=== PATIENT | male | born 1945 | race Caucasian/White ===

== ENCOUNTER 2019-06-15 06:16 | Day surgery (SDC) | payer OTHER ==
[2019-06-14 10:08] VITALS: BMI 28.5
[2019-06-15] MEDS ORDERED: LIDOCAINE HCL 1%, 10 MG/ML (20ML VIAL) ONE (07:08)
[2019-06-15] MEDS ORDERED: BUPIVACAINE HCL/PF 0.25% (2.5MG/ML) 10 ML VIAL ONE (07:08)
[2019-06-15] MEDS ORDERED: DEXAMETHASONE SOD PHOSPHATE 4 MG/1 ML VIAL ONE (07:32)
[2019-06-15] MEDS ORDERED: BUPIVACAINE HCL/PF 0.75% 10 ML VIAL ONE (07:33)
[2019-06-15] MEDS ORDERED: SODIUM CHLORIDE 0.9% P/F 10 ML VIAL IJ ONE (07:37)
[2019-06-15] MEDS ORDERED: LIDOCAINE HCL 1%, 10 MG/ML (20ML VIAL) INF ONE ×3 (08:44→08:59)
[2019-06-15] MEDS ORDERED: BUPIVACAINE HCL/PF 0.5% (5 MG/ML) 30 ML VIAL IJ ONE (08:45)
[2019-06-15] MEDS ORDERED: BUPIVACAINE HCL/PF 2.5 MG/ML - 30 ML VIAL IJ ONE (08:45)
[2019-06-15] MEDS ORDERED: IOHEXOL 180 MG/1 ML ML IJ ONE ×3 (08:46→08:59)
[2019-06-15] MEDS ORDERED: BUPIVACAINE HCL/PF 0.75% 10 ML VIAL NR ONE ×3 (08:46→08:59)
[2019-06-15] MEDS ORDERED: TRIAMCINOLONE ACETONIDE 40 MG/ML 10 ML VIAL IJ ONE (08:46)
[2019-06-15 09:20] VITALS: BP 135/77; PULSE 57; TEMP 97.9
== END 2019-06-15 09:40 | disposition home or self-care (01) ==
LOC: JASU-SURG 06:16
PROVIDERS: ATTEND Pain Medicine Pain Medicine
PROC: BR16YZZ Fluoroscopy of Lumbar Facet Joint(s) using Other Contrast (ICD-10-PCS; 2019-06-15)
PROC: 3E0T3BZ Introduction of Anesthetic Agent into Peripheral Nerves and Plexi, Percutaneous Approach (ICD-10-PCS; principal; 2019-06-15 08:00)
DX: M12.88 Other specific arthropathies, not elsewhere classified, other specified site (principal); M54.5 Low back pain
CPT/HCPCS: 76000-TC-FY

== ENCOUNTER 2019-12-07 04:32 | Day surgery (SDC) | payer OTHER ==
[2019-12-06 11:28] VITALS: BMI 28.5
[2019-12-07] MEDS ORDERED: LIDOCAINE HCL/PF 1% SDV 5ML VIAL ONE (07:33)
[2019-12-07] MEDS ORDERED: DEXAMETHASONE SOD PHOSPHATE/PF 10 MG/ML SDV ONE (07:33)
--- NOTE | 2019-12-07 08:01 | HP ---
Admitting History and Physical - Admission Chief Complaint: Low back pain History Source: Patient - Smoking History Smoking history: Never smoked - Alcohol/Substance Use Hx Alcohol Use: Yes (OCCASIONAL) Home Medications - Allergies Allergies/Adverse Reactions: Allergies Allergy/AdvReac Type Severity Reaction Status Date / Time Penicillins Allergy Severe ANAPHYLACTI Verified 12/07/19 06:43 C - Home Medications Home Medications: Ambulatory Orders NK [No Known Home Medication] 06/14/19 Review of Systems - Review of Systems Constitutional: reports: No Symptoms Eyes: reports: No Symptoms HENT: reports: No Symptoms Neck: reports: No Symptoms Cardiovascular: reports: No Symptoms Respiratory: reports: No Symptoms Gastrointestinal: reports: No Symptoms Genitourinary: reports: No Symptoms Musculoskeletal: reports: No Symptoms Neurological: reports: No Symptoms Endocrine: reports: No Symptoms Hematology/Lymphatic: reports: No Symptoms Physical Examination Vital Signs: Vital Signs Temperature 98.0 F 12/07/19 06:41 Pulse Rate 59 L 12/07/19 06:41 Respiratory Rate 20 12/07/19 06:41 Blood Pressure 146/78 12/07/19 06:41 O2 Sat by Pulse Oximetry (%) 97 12/07/19 06:41 Constitutional: Yes: Well Nourished, No Distress, Calm Eyes: Yes: WNL, Conjunctiva Clear, EOM Intact HENT: Yes: WNL, Atraumatic, Normocephalic Neck: Yes: WNL, Trachea Midline Cardiovascular: Yes: Regular Rate and Rhythm Respiratory: Yes: WNL Musculoskeletal: Yes: Back Pain Imaging - Results MRI: Image Reviewed Assessment/Plan The patients michael is secodnary to lumbar spondylosis. I will perform Left L3 L4 L5 RFA
[2019-12-07] MEDS ORDERED: LIDOCAINE HCL 1% PRESERVATIVE FREE - 30ML VIAL IJ ONE ×2 (08:07)
[2019-12-07] MEDS ORDERED: BUPIVACAINE HCL/PF 0.75% 10 ML VIAL NR ONE ×2 (08:08)
[2019-12-07 09:07] VITALS: TEMP 97.8
[2019-12-07 09:26] VITALS: BP 150/78; PULSE 55
--- NOTE | 2019-12-13 09:27 | PROC ---
Procedure Note Procedure: Preprocedure Diagnosis: Lumbar spondylosis/Low back pain Post Procedure Diagnosis: same Anesthesia: Local Procedure Performed: Left L3 L4 L5 medial branch radiofrequency ablation under fluoroscopic guidance The patient was sterilely prepped and draped in the usual fashion while in the prone position. 1% Lidocaine was used to provide soft tissue anesthesia. Time out was performed. Under fluoroscopic guidance, 10mm active tip radiofrequency probes were successfully directed over the Left L3, L4 and L5 dorsal rami at the intersection of the transverse processes and superior articular processes. Needle tip positions were confirmed with both sensory and motor stimulation, both of which resulted in appropriate responses in the lumbar region, and no response in the lower extremities. Lesions were performed at each site at a temperature of 90 degrees Celsius for duration of 90 seconds. Prior to each lesion, 1mL of a cocktail of 4mL of 2% lidocaine and 1mL Omnipaque 180 was injected at each site. Following each lesion, 0.5mL of solution containing 1mL dexamethasone and 2mL of .75% bupiva allan, was injected at each site. The patient tolerated the procedure well and there were no complications. The patient was taken to the post procedure recovery area in good condition. Vital signs remained stable before, during, and after the procedure. The patient was given oral and written follow-up instructions. The patient was given a follow up appointment with me in the near future. Ras PAL
== END 2019-12-07 09:33 | disposition home or self-care (01) ==
LOC: JASU-SURG 04:32
PROVIDERS: ATTEND Pain Medicine Pain Medicine
PROC: BR16YZZ Fluoroscopy of Lumbar Facet Joint(s) using Other Contrast (ICD-10-PCS; 2019-12-07)
PROC: 3E0T3TZ Introduction of Destructive Agent into Peripheral Nerves and Plexi, Percutaneous Approach (ICD-10-PCS; principal; 2019-12-07 08:00)
DX: M47.896 Other spondylosis, lumbar region (principal); M54.5 Low back pain
CPT/HCPCS: 76000-TC-FY

== ENCOUNTER 2019-12-28 04:14 | Day surgery (SDC) | payer OTHER ==
[2019-12-26 09:48] VITALS: BMI 28.5
[2019-12-28] MEDS ORDERED: methylPREDNISolone ACET (DEPO) 40 MG/1 ML VIAL ONE (07:16)
[2019-12-28] MEDS ORDERED: BETAMET ACET/BETAMET NA PH 30 MG/5 ML VIAL ONE (07:16)
[2019-12-28] MEDS ORDERED: LIDOCAINE HCL 1%, 10 MG/ML (20ML VIAL) ONE (07:16)
[2019-12-28] MEDS ORDERED: BUPIVACAINE HCL/PF 0.25% (2.5MG/ML) 10 ML VIAL ONE (07:16)
[2019-12-28] MEDS ORDERED: DEXAMETHASONE SOD PHOSPHATE 4 MG/1 ML VIAL ONE (07:16)
[2019-12-28] MEDS ORDERED: BUPIVACAINE HCL/PF 0.75% 10 ML VIAL ONE (08:58)
[2019-12-28] MEDS ORDERED: LIDOCAINE HCL 2% (20ML MULTI-DOSE VIAL) ONE (08:58)
--- NOTE | 2019-12-28 09:04 | PROC ---
Procedure Note Procedure: Pre procedure Diagnosis: Lumbar Spondylosis Post Procedure Diagnosis: same Anesthesia: local Procedure Performed: RightL3 L4 L5 medial branch radiofrequency ablation The patient was sterilely prepped and draped in the usual fashion while in the prone position. 1% Lidocaine was used to provide soft tissue anesthesia. Time out was performed. Under fluoroscopic guidance, 10mm active tip radiofrequency probes were successfully directed over the RIGHT L3, L4 and L5 dorsal rami at the intersection of the transverse processes and superior articular processes. Needle tip positions were confirmed with both sensory and motor stimulation, both of which resulted in appropriate responses in the lumbar region, and no reponse in the lower extremities. Lesions were performed at each site at a temperature of 90 degrees Celsius for duration of 90 seconds. Prior to each lesion, 1mL of a cocktail of 4mL of 2% lidocaine and 1mL Omnipaque 180 was injected at each site. Following each lesion, 0.5mL of solution containing 1mL dexamethasone and 2mL of .75% bupivacaine, was injected at each site. The patient tolerated the procedure well and there were no complications. The patient was taken to the post procedure recovery area in good condition. Vital signs remained stable before, during, and after the procedure. The patient was given oral and written follow-up instructions. The patient was given a follow up appointment with me in the near future. Ras PAL
[2019-12-28] MEDS ORDERED: LIDOCAINE HCL 1%, 10 MG/ML (20ML VIAL) ID ONE (09:19)
[2019-12-28] MEDS ORDERED: LIDOCAINE HCL 2% (50ML VIAL) INF ONE (09:20)
[2019-12-28] MEDS ORDERED: DEXAMETHASONE SOD PHOSPHATE 10 MG/1 ML VIAL IVPUSH ONE (09:21)
[2019-12-28] MEDS ORDERED: BUPIVACAINE HCL/PF 0.75% 10 ML VIAL NR ONE (09:22)
[2019-12-28] MEDS ORDERED: IOHEXOL 180 MG/1 ML ML IJ ONE (09:25)
[2019-12-28 10:10] VITALS: TEMP 98.2
[2019-12-28 10:19] VITALS: BP 134/69; PULSE 60
== END 2019-12-28 10:25 | disposition home or self-care (01) ==
LOC: JASU-SURG 04:14
PROVIDERS: ATTEND Pain Medicine Pain Medicine
PROC: 3E0T3TZ Introduction of Destructive Agent into Peripheral Nerves and Plexi, Percutaneous Approach (ICD-10-PCS; principal; 2019-12-28 09:00)
DX: M47.817 Spondylosis without myelopathy or radiculopathy, lumbosacral region (principal); M54.5 Low back pain
CPT/HCPCS: J1100

== ENCOUNTER 2020-04-18 05:54 | Day surgery (SDC) | payer OTHER ==
[2020-04-18] MEDS ORDERED: LIDOCAINE HCL 1% PRESERVATIVE FREE - 30ML VIAL IJ ONE (11:48)
[2020-04-18 13:20] VITALS: TEMP 97.9
[2020-04-18 13:30] VITALS: BP 140/74; PULSE 60
== END 2020-04-18 12:50 | disposition home or self-care (01) ==
LOC: JASU-SURG 05:54
PROVIDERS: ATTEND Pain Medicine Pain Medicine
PROC: 01HY3MZ Insertion of Neurostimulator Lead into Peripheral Nerve, Percutaneous Approach (ICD-10-PCS; principal; 2020-04-18 10:30)
DX: G89.4 Chronic pain syndrome (principal)
CPT/HCPCS: 64555; C1778; 76000-TC-FY

== ENCOUNTER 2020-06-16 10:37 | Emergency (ER) | payer OTHER | END 2020-06-16 11:42 | disposition home or self-care (01) | LOC: JVIRT 10:37 | DX: U07.1 COVID-19 (principal) | CPT/HCPCS: C9803; G2012-GT; U0003 ==

== ENCOUNTER 2021-02-06 04:31 | Day surgery (SDC) | payer OTHER ==
[2021-02-05 10:35] VITALS: BMI 27.8
[2021-02-06] MEDS ORDERED: LIDOCAINE HCL 1% PRESERVATIVE FREE - 30ML VIAL IJ ONE (10:24)
[2021-02-06 11:40] VITALS: BP 160/76; PULSE 64; TEMP 98.6
== END 2021-02-06 11:45 | disposition home or self-care (01) ==
LOC: JASU-SURG 04:31
PROVIDERS: ATTEND Pain Medicine Pain Medicine
PROC: 4B01XVZ Measurement of Peripheral Nervous Stimulator, External Approach (ICD-10-PCS; 2021-02-06)
PROC: 01HY3MZ Insertion of Neurostimulator Lead into Peripheral Nerve, Percutaneous Approach (ICD-10-PCS; principal; 2021-02-06 09:15)
DX: G89.4 Chronic pain syndrome (principal); M25.561 Pain in right knee
CPT/HCPCS: 64555; C1897

== ENCOUNTER 2021-07-31 05:31 | Day surgery (SDC) | payer OTHER ==
[2021-07-27 12:11] VITALS: BMI 27.2
[2021-07-31] MEDS ORDERED: LIDOCAINE HCL/PF 1% SDV 5ML VIAL ONE (07:08)
[2021-07-31] MEDS ORDERED: LIDOCAINE HCL/PF 2% SDV 5ML VIAL ONE (07:11)
[2021-07-31] MEDS ORDERED: LIDOCAINE HCL 1% PRESERVATIVE FREE - 30ML VIAL IJ ONE (09:24)
[2021-07-31] MEDS ORDERED: ACETAMINOPHEN 650 MG/20.3 ML ORAL SOLUTION (CUPS) ONE (10:48)
[2021-07-31] MEDS ORDERED: ACETAMINOPHEN 325 MG TABLET (FP) PO ONE (10:50)
[2021-07-31 12:16] VITALS: BP 156/79; PULSE 60; TEMP 98
== END 2021-07-31 11:05 | disposition home or self-care (01) ==
LOC: JASU-SURG 05:31
PROVIDERS: ATTEND Pain Medicine Pain Medicine
PROC: 01HY3MZ Insertion of Neurostimulator Lead into Peripheral Nerve, Percutaneous Approach (ICD-10-PCS; principal; 2021-07-31 09:00)
DX: G89.4 Chronic pain syndrome (principal); M25.561 Pain in right knee; E11.9 Type 2 diabetes mellitus without complications
CPT/HCPCS: 64555; C1897

== ENCOUNTER 2021-11-05 08:00 | Inpatient (IN) | payer OTHER ==
[2021-10-27 13:21] VITALS: BMI 27.8
[2021-11-05] MEDS ORDERED: BUPIVACAINE HCL 50 ML ONE ×3 (12:35→13:52)
[2021-11-05] MEDS ORDERED: PROPOFOL 20 ML ONE ×2 (13:06)
[2021-11-05] MEDS ORDERED: SUCCINYLCHOLINE CHLORIDE 200 MG/10 ML SYRINGE ONE (13:06)
[2021-11-05] MEDS ORDERED: LIDOCAINE HCL 2% JELLY (5 ML/TUBE) ONE (13:06)
[2021-11-05] MEDS ORDERED: MIDAZOLAM HCL 2 MG/2 ML SINGLE DOSE VIAL ONE (13:06)
[2021-11-05] MEDS ORDERED: LIDOCAINE HCL/PF 2% SDV 5ML VIAL ONE (13:06)
[2021-11-05] MEDS ORDERED: ceFAZolin SODIUM 1 GM VIAL ONE (13:19)
[2021-11-05] MEDS ORDERED: ONDANSETRON 4 MG/2 ML VIAL ONE (13:19)
[2021-11-05] MEDS ORDERED: DEXAMETHASONE SOD PHOSPHATE 4 MG/1 ML VIAL ONE (13:19)
[2021-11-05] MEDS ORDERED: KETOROLAC TROMETHAMINE 30 MG/1 ML VIAL ONE (13:19)
[2021-11-05] MEDS ORDERED: ePHEDrine SULFATE 50 MG/1 ML AMPULE ONE (13:57)
[2021-11-05] MEDS ORDERED: oxyCODONE HCL 5 MG TABLET PO ONE (14:16)
[2021-11-05] MEDS ORDERED: ONDANSETRON 4 MG/2 ML VIAL IVPUSH PRN (14:16)
[2021-11-05] MEDS ORDERED: FENTANYL CITRATE/PF 50 MCG/ML VIAL ONE (14:35)
[2021-11-05 16:10] VITALS: TEMP 97.9
[2021-11-05 16:46] VITALS: BP 128/72; PULSE 80
== END 2021-11-05 16:40 | disposition home or self-care (01) | DRG 489 ==
LOC: EDSTATUS 08:00 → FM/S 10:30
PROVIDERS: ADMIT Orthopaedic Surgery; ATTEND Orthopaedic Surgery
PROC: 0SQD0ZZ Repair Left Knee Joint, Open Approach (ICD-10-PCS; 2021-11-05)
PROC: 0SBD0ZZ Excision of Left Knee Joint, Open Approach (ICD-10-PCS; principal; 2021-11-05 12:00)
DX: S83.232A Complex tear of medial meniscus, current injury, left knee, initial encounter (principal); M17.12 Unilateral primary osteoarthritis, left knee; Y93.9 Activity, unspecified; M65.862 Other synovitis and tenosynovitis, left lower leg; X58.XXXA Exposure to other specified factors, initial encounter
CPT/HCPCS: 94760; C9803-CS; U0003; U0005

== ENCOUNTER 2022-01-19 16:29 | Inpatient (IN) | payer OTHER ==
[2022-01-19] MEDS ORDERED: ASPIRIN 81 MG CHEWABLE TABLETS PO ONE (16:59)
[2022-01-19] MEDS ORDERED: ASPIRIN 81 MG CHEWABLE TABLETS ONE (17:25)
[2022-01-19 17:55] LABS: BASO % 0.2 % (0-2.0); EOS % 0.2 % (0-4.5); HEMATOCRIT 41.8 % (35.4-49); HEMOGLOBIN 14.1 GM/dL (11.7-16.9); LYMPH % 10.6 % (8-40); MCH 31.1 pg (25.7-33.7); MCHC 33.6 g/dl (32.0-35.9); MEAN CELL VOLUME 92.5 fl (80-96); MEAN PLT VOLUME 8.6 fl (7.5-11.1); MONO % 13.7 % (3.8-10.2); NEUT % 75.3 % (42.8-82.8); PLATELET COUNT 157 10^3/uL (134-434); RBC 4.52 M/mm3 (4.00-5.60); WHITE BLOOD COUNT 6.5 K/mm3 (4.0-10.0)
[2022-01-19 18:02] LABS: INR 1.26 (0.83-1.09); PROTHROMBIN TIME (PATIENT) 14.5 SEC (9.7-13.0)
[2022-01-19 18:05] LABS: ACTIVATED PTT 27.1 SECONDS (25.2-36.5)
[2022-01-19 18:25] LABS: CALCIUM 9.1 mg/dL (8.5-10.1)
[2022-01-19 18:26] LABS: ALBUMIN 3.4 g/dl (3.4-5.0); BLOOD UREA NITROGEN 18.8 mg/dL (7-18)
[2022-01-19 18:29] LABS: CREATININE 1.1 mg/dL (0.55-1.3)
[2022-01-19 18:30] LABS: BILIRUBIN,TOTAL 1.1 mg/dL (0.2-1); TOT PROT 6.9 g/dl (6.4-8.2)
[2022-01-20 08:45] LABS: BLOOD UREA NITROGEN 25.4 mg/dL (7-18); CALCIUM 8.7 mg/dL (8.5-10.1); MAGNESIUM 2.1 mg/dL (1.8-2.4)
[2022-01-20 08:47] LABS: CREATININE 1.4 mg/dL (0.55-1.3)
[2022-01-20 08:48] LABS: PHOSPHOROUS 1.8 mg/dL (2.5-4.9)
[2022-01-20 08:49] LABS: BILIRUBIN,TOTAL 0.7 mg/dL (0.2-1); TOT PROT 6.3 g/dl (6.4-8.2)
[2022-01-20] MEDS: ASPIRIN COATED 81 MG TABLET.EC PO SCH (14:06)
[2022-01-20] MEDS: CLOPIDOGREL BISULFATE 75 MG TABLET (FP) PO SCH (14:06)
[2022-01-20] MEDS: ENOXAPARIN NA (PORCINE) 40 MG/0.4 ML DISP.SYRIN SQ SCH (14:06)
[2022-01-20] MEDS ORDERED: CLOPIDOGREL BISULFATE 75 MG TABLET (FP) ONE (14:08)
[2022-01-20] MEDS ORDERED: ASPIRIN 81 MG CHEWABLE TABLETS ONE (14:08)
[2022-01-20 16:04] VITALS: BMI 27.7
[2022-01-20] MEDS: ATORVASTATIN CA 80 MG TABLET (FP) PO SCH (22:05)
[2022-01-20 22:08] LABS: PH,URINE 5.5 (5.0-8.0); URINE APPEARANCE CLEAR; URINE BILIRUBIN NEGATIVE (NEGATIVE); URINE COLOR YELLOW; URINE GLUCOSE (UA) NEGATIVE (NEGATIVE); URINE KETONE NEGATIVE (NEGATIVE); URINE LEUK ESTERASE NEGATIVE (NEGATIVE); URINE NITRITE NEGATIVE (NEGATIVE); URINE PROTEIN NEGATIVE (NEGATIVE)
[2022-01-21] MEDS ORDERED: REGADENOSON 0.4 MG/5 ML PRE-FILLED SYRINGE IVPUSH ONE (10:45)
[2022-01-21] MEDS: ENOXAPARIN NA (PORCINE) 40 MG/0.4 ML DISP.SYRIN SQ SCH (15:10)
[2022-01-21] MEDS: ASPIRIN COATED 81 MG TABLET.EC PO SCH (15:10)
[2022-01-21] MEDS: CLOPIDOGREL BISULFATE 75 MG TABLET (FP) PO SCH (15:10)
[2022-01-21 18:15] VITALS: RESP 18
[2022-01-21 19:28] LABS: BASO % 0.4 % (0-2.0); EOS % 2.1 % (0-4.5); HEMATOCRIT 45.5 % (35.4-49); HEMOGLOBIN 15.3 GM/dL (11.7-16.9); LYMPH % 14.7 % (8-40); MCH 31.1 pg (25.7-33.7); MCHC 33.7 g/dl (32.0-35.9); MEAN CELL VOLUME 92.4 fl (80-96); MEAN PLT VOLUME 8.7 fl (7.5-11.1); MONO % 12.3 % (3.8-10.2); NEUT % 70.5 % (42.8-82.8); PLATELET COUNT 194 10^3/uL (134-434); RBC 4.92 M/mm3 (4.00-5.60); RDW 14.4 % (11.9-15.9); WHITE BLOOD COUNT 5.8 K/mm3 (4.0-10.0)
[2022-01-21 19:55] LABS: BLOOD UREA NITROGEN 30.1 mg/dL (7-18)
[2022-01-21 19:57] LABS: ALBUMIN 3.4 g/dl (3.4-5.0); MAGNESIUM 2.2 mg/dL (1.8-2.4)
[2022-01-21 19:59] LABS: PHOSPHOROUS 3.3 mg/dL (2.5-4.9)
[2022-01-21 20:00] LABS: CREATININE 1.2 mg/dL (0.55-1.3)
[2022-01-21 20:01] LABS: BILIRUBIN,TOTAL 0.4 mg/dL (0.2-1)
[2022-01-21 20:23] LABS: ERYTHROCYTE SEDIMENTATION RATE 56 mm/hr (0-20)
[2022-01-21] MEDS: ATORVASTATIN CA 80 MG TABLET (FP) PO SCH (21:15)
[2022-01-22 08:11] LABS: BASO % 0.4 % (0-2.0); HEMATOCRIT 39.1 % (35.4-49); HEMOGLOBIN 13.3 GM/dL (11.7-16.9); LYMPH % 19.4 % (8-40); MCH 31.7 pg (25.7-33.7); MCHC 34.1 g/dl (32.0-35.9); MEAN PLT VOLUME 8.7 fl (7.5-11.1); MONO % 11.7 % (3.8-10.2); NEUT % 64.5 % (42.8-82.8); PLATELET COUNT 181 10^3/uL (134-434); RDW 13.9 % (11.9-15.9); WHITE BLOOD COUNT 4.2 K/mm3 (4.0-10.0)
[2022-01-22 08:39] LABS: ALBUMIN 2.8 g/dl (3.4-5.0); CALCIUM 8.3 mg/dL (8.5-10.1)
[2022-01-22 08:42] LABS: CREATININE 1.1 mg/dL (0.55-1.3); PHOSPHOROUS 3.2 mg/dL (2.5-4.9)
[2022-01-22 08:44] LABS: BILIRUBIN,TOTAL 0.5 mg/dL (0.2-1); TOT PROT 5.9 g/dl (6.4-8.2)
[2022-01-22 10:48] VITALS: BP 149/78; PULSE 66; TEMP 97.8
[2022-01-22] MEDS: ENOXAPARIN NA (PORCINE) 40 MG/0.4 ML DISP.SYRIN SQ SCH (11:25)
[2022-01-22] MEDS: CLOPIDOGREL BISULFATE 75 MG TABLET (FP) PO SCH (11:26)
[2022-01-22] MEDS: ASPIRIN COATED 81 MG TABLET.EC PO SCH (11:26)
== END 2022-01-22 17:25 | disposition home or self-care (01) | DRG 316 ==
LOC: JER 16:29 → JERBED 18:41 → J4W 01-20 14:47
PROVIDERS: ADMIT Internal Medicine; ATTEND Internal Medicine
DX: I31.9 Disease of pericardium, unspecified (principal); R94.31 Abnormal electrocardiogram [ECG] [EKG]; R07.9 Chest pain, unspecified; K21.9 Gastro-esophageal reflux disease without esophagitis
CPT/HCPCS: 36415; 71045-TC-FY; 78452-TC; 80053; 80061; 81003; 82550; 83036; 83735; 84100; 84443; 84484; 85025; 85610; 85651; 85730; 86038; 86140; 86431; 93005; 93010; 93017; 93306-TC; 99285-25; A9502; C9803-CS; U0003; U0005

== ENCOUNTER 2023-04-01 11:47 | Emergency (ER) | payer OTHER ==
[2023-04-01 12:01] VITALS: BP 155/76; PULSE 57; RESP 16; TEMP 97.6; BMI 27.8
== END 2023-04-01 13:35 | disposition home or self-care (01) ==
LOC: SUPCPDRO 11:47 → FER 11:47
DX: K60.2 Anal fissure, unspecified (principal); L29.0 Pruritus ani
CPT/HCPCS: 99283-25

== ENCOUNTER 2024-01-26 04:35 | Day surgery (SDC) | payer OTHER ==
[2024-01-24 10:21] VITALS: BMI 28.3
[2024-01-26] MEDS ORDERED: LIDOCAINE HCL/PF 1% SDV 5ML VIAL ONE (07:18)
[2024-01-26] MEDS ORDERED: DEXAMETHASONE SOD PHOSPHATE 10 MG/1 ML VIAL ONE (07:18)
[2024-01-26] MEDS ORDERED: SODIUM CHLORIDE 0.9% P/F 10 ML VIAL IJ ONE (07:48)
[2024-01-26] MEDS ORDERED: ACETAMINOPHEN 500 MG TABLET (FP) PO PRN (09:52)
[2024-01-26] MEDS: LIDOCAINE HCL 1% PRESERVATIVE FREE - 30ML VIAL IJ ONE (17:00)
[2024-01-26] MEDS: IOHEXOL 180 MG/1 ML ML IJ ONE (17:00)
[2024-01-26] MEDS: LIDOCAINE HCL 2% (50ML VIAL) NR ONE (17:00)
[2024-01-26] MEDS: DEXAMETHASONE SOD PHOSPHATE 10 MG/1 ML VIAL IVPUSH ONE (17:01)
[2024-01-26 17:13] VITALS: PULSE 56; RESP 18; TEMP 97.5
[2024-01-26 17:47] VITALS: BP 145/78
== END 2024-01-26 17:48 | disposition home or self-care (01) ==
LOC: JASU-SURG 04:35
PROVIDERS: ATTEND Pain Medicine Pain Medicine
PROC: 3E0R33Z Introduction of Anti-inflammatory into Spinal Canal, Percutaneous Approach (ICD-10-PCS; principal; 2024-01-26 14:30)
DX: M54.12 Radiculopathy, cervical region (principal)
CPT/HCPCS: 76000-TC-FY; J1100

== ENCOUNTER 2024-02-24 04:08 | Day surgery (SDC) | payer OTHER ==
[2024-02-22 11:33] VITALS: BMI 28.3
[~2024-02-24 04:08] MED LIST: ACETAMINOPHEN 500 MG TABLET (FP) PO PRN
[2024-02-24 13:09] VITALS: RESP 18
[2024-02-24] MEDS: BUPIVACAINE HCL/PF 0.5% (5MG/ML) 10 ML VIAL IJ ONE ×2 (15:12)
[2024-02-24 16:48] VITALS: BP 139/81; PULSE 66; TEMP 97.7
== END 2024-02-24 15:45 | disposition home or self-care (01) ==
LOC: JASU-SURG 04:08
PROVIDERS: ATTEND Pain Medicine Pain Medicine
PROC: 3E0T3BZ Introduction of Anesthetic Agent into Peripheral Nerves and Plexi, Percutaneous Approach (ICD-10-PCS; principal; 2024-02-24 15:09)
DX: M47.812 Spondylosis without myelopathy or radiculopathy, cervical region (principal)
CPT/HCPCS: 76000-TC-FY

== ENCOUNTER 2024-03-30 04:28 | Day surgery (SDC) | payer OTHER ==
[2024-03-29 10:55] VITALS: BMI 28.3
[2024-03-30] MEDS: IOHEXOL 180 MG/1 ML ML IJ ONE
[2024-03-30] MEDS: LIDOCAINE HCL 1% PRESERVATIVE FREE - 30ML VIAL IJ ONE
[2024-03-30] MEDS ORDERED: ACETAMINOPHEN 500 MG TABLET (FP) PO PRN (08:37)
[2024-03-30] MEDS: BUPIVACAINE HCL/PF 0.5% (5MG/ML) 10 ML VIAL NR ONE ×2 (09:41)
[2024-03-30 12:09] VITALS: RESP 18
[2024-03-30 12:11] VITALS: BP 149/72; PULSE 58; TEMP 97.7
== END 2024-03-30 10:30 | disposition home or self-care (01) ==
LOC: JASU-SURG 04:28
PROVIDERS: ATTEND Pain Medicine Pain Medicine
PROC: 3E0T33Z Introduction of Anti-inflammatory into Peripheral Nerves and Plexi, Percutaneous Approach (ICD-10-PCS; 2024-03-30)
PROC: 3E0T3BZ Introduction of Anesthetic Agent into Peripheral Nerves and Plexi, Percutaneous Approach (ICD-10-PCS; principal; 2024-03-30 09:00)
DX: M47.812 Spondylosis without myelopathy or radiculopathy, cervical region (principal)
CPT/HCPCS: 76000-TC-FY

== ENCOUNTER 2024-05-11 04:23 | Day surgery (SDC) | payer OTHER ==
[2024-05-07 09:27] VITALS: BMI 28.3
[2024-05-11] MEDS ORDERED: ACETAMINOPHEN 500 MG TABLET (FP) PO PRN (08:33)
[2024-05-11 10:36] VITALS: RESP 16
[2024-05-11 12:28] VITALS: BP 140/67; PULSE 57; TEMP 98
== END 2024-05-11 13:00 | disposition home or self-care (01) ==
LOC: JASU-SURG 04:23
PROVIDERS: ATTEND Pain Medicine Pain Medicine
PROC: 01513ZZ Destruction of Cervical Nerve, Percutaneous Approach (ICD-10-PCS; principal; 2024-05-11 12:00)
DX: M47.812 Spondylosis without myelopathy or radiculopathy, cervical region (principal)
CPT/HCPCS: 76000-TC-FY

== ENCOUNTER 2024-06-21 03:53 | Day surgery (SDC) | payer OTHER ==
[2024-06-19 10:29] VITALS: BMI 28.3
[2024-06-21] MEDS ORDERED: BUPIVACAINE HCL/PF 0.25% (2.5MG/ML) 10 ML VIAL ONE (07:11)
[2024-06-21] MEDS ORDERED: LIDOCAINE HCL/PF 2% SDV 5ML VIAL ONE (07:11)
[2024-06-21] MEDS ORDERED: DEXAMETHASONE SOD PHOSPHATE 10 MG/1 ML VIAL ONE (07:12)
[2024-06-21] MEDS ORDERED: LIDOCAINE HCL/PF 1% SDV 5ML VIAL ONE (07:12)
[2024-06-21 07:22] VITALS: RESP 20
[2024-06-21] MEDS: LIDOCAINE HCL/PF 2% SDV 5ML VIAL INF ONE ×2 (08:15)
[2024-06-21] MEDS: LIDOCAINE HCL 1% PRESERVATIVE FREE - 30ML VIAL IJ ONE ×2 (08:15)
[2024-06-21] MEDS: BUPIVACAINE HCL/PF 0.5% (5MG/ML) 10 ML VIAL IJ ONE ×3 (08:17)
[2024-06-21] MEDS: DEXAMETHASONE SOD PHOSPHATE 10 MG/1 ML VIAL IVPUSH ONE ×2 (08:26)
[2024-06-21] MEDS ORDERED: ACETAMINOPHEN 500 MG TABLET (FP) PO PRN (08:42)
[2024-06-21 08:47] VITALS: BP 133/79; PULSE 60; TEMP 97.8
== END 2024-06-21 09:30 | disposition home or self-care (01) ==
LOC: JASU-SURG 03:53
PROVIDERS: ATTEND Pain Medicine Pain Medicine
PROC: 3E0T3BZ Introduction of Anesthetic Agent into Peripheral Nerves and Plexi, Percutaneous Approach (ICD-10-PCS; principal; 2024-06-21 08:45)
PROC: 3E0T33Z Introduction of Anti-inflammatory into Peripheral Nerves and Plexi, Percutaneous Approach (ICD-10-PCS; 2024-06-21 08:45)
DX: M47.812 Spondylosis without myelopathy or radiculopathy, cervical region (principal)
CPT/HCPCS: 76000-TC-FY; J1100